=== PATIENT | male | born 1975 | race Caucasian/White ===

== ENCOUNTER 2021-12-06 07:57 | Day surgery (SDC) | payer OTHER ==
[2021-11-30 13:06] VITALS: BMI 28.7
[2021-12-06] MEDS ORDERED: BUPIVACAINE HCL/PF 0.25% (2.5MG/ML) 10 ML VIAL ONE (09:49)
[2021-12-06] MEDS ORDERED: MIDAZOLAM HCL 2 MG/2 ML SINGLE DOSE VIAL ONE (09:50)
[2021-12-06] MEDS ORDERED: oxyCODONE HCL 5 MG TABLET PO PRN (09:51)
[2021-12-06] MEDS ORDERED: LACTATED RINGERS SOLUTION 1,000 ML IV SCH (10:00)
[2021-12-06] MEDS ORDERED: PROPOFOL 20 ML ONE (10:04)
[2021-12-06] MEDS ORDERED: LIDOCAINE HCL/PF 2% SDV 5ML VIAL ONE (10:11)
[2021-12-06] MEDS ORDERED: DEXAMETHASONE SOD PHOSPHATE 4 MG/1 ML VIAL ONE (10:11)
[2021-12-06] MEDS ORDERED: ONDANSETRON 4 MG/2 ML VIAL ONE ×2 (10:11→10:32)
[2021-12-06] MEDS ORDERED: KETOROLAC TROMETHAMINE 30 MG/1 ML VIAL ONE (10:32)
[2021-12-06 11:37] VITALS: TEMP 97.8
[2021-12-06] MEDS ORDERED: oxyCODONE HCL 5 MG TABLET ONE (11:39)
[2021-12-06 12:31] VITALS: BP 111/68; PULSE 58
== END 2021-12-06 11:55 | disposition home or self-care (01) ==
LOC: FASU 07:57
PROVIDERS: ATTEND Orthopaedic Surgery Sports Medicine
PROC: 0SBD4ZZ Excision of Left Knee Joint, Percutaneous Endoscopic Approach (ICD-10-PCS; principal; 2021-12-06 10:18)
DX: S83.242A Other tear of medial meniscus, current injury, left knee, initial encounter (principal); M67.52 Plica syndrome, left knee; X58.XXXA Exposure to other specified factors, initial encounter; Y93.9 Activity, unspecified; Y92.9 Unspecified place or not applicable
CPT/HCPCS: 94760